=== PATIENT | male | born 1935 | race Asian ===

== ENCOUNTER 2019-09-09 08:47 | Inpatient (IN) | payer MEDICARE, OTHER ==
[~2019-09-09] VITALS: Ht 172.7 cm; Wt 88.5 kg
[2019-09-09] VITALS (7 sets, daily range): BP systolic 115–138; BP diastolic 55–78
[~2019-09-09 08:47] MED LIST: CLOPIDOGREL75 MG ORAL; DEXILANT60 MG ORAL; LOSARTAN POTASS50 MG ORAL; METOPROLOL TART25 MG ORAL
--- NOTE | 2019-09-09 08:50 | NUR ---
ED Nurse Note: Patient broiught in by ambulance from home RA [id number] due to left anterior upper abdominal pain non radiating 02/04, patient vomiting upon arrival, reports patient has been vomiting since last night, reports hx of "gall stone", and several surgeries to take out "stones." patient is alert awake x4 ambulatory, weak, breathing unlabored and even, patient placed on a hospital gown and on a cardiac montior. fever of 101.[address] Rojas.
--- NOTE | 2019-09-09 08:59 | Emergency Room Report ---
History of Present Illness General Chief Complaint: Abdominal Pain Source: Patient, EMS Present Illness HPI Disclaimer: Please note that this report is being documented using [employer] technology. This can lead to erroneous entry secondary to incorrect interpretation by the dictating instrument. HPI: 83-year-old male with a history of cholecystitis, CAD, hypertension, hyperlipidemia, BPH presents for evaluation of abdominal pain and vomiting. Symptoms began last night. Notes upper abdominal epigastric and left upper quadrant cramping. Noted bilious emesis without hematemesis. Unable to hold down any food now. States he has had multiple abdominal surgeries for "stones" but cannot say exactly which kind of stones, either kidney stones or gallstones. He states he has had gallstones before but states he keeps getting them. Denies dysuria or hematuria. Denies flank pain. Denies chest pain or shortness of breath. Does feel globally weak. No known sick contacts. No exacerbating or alleviating symptoms. PMH: Hypertension, hyperlipidemia, CAD, BPH, cholelithiasis PSH: Multiple abdominal surgeries, unspecified Allergies: Denies Social Hx: Denies Allergies: Coded Allergies: No Known Allergies (Unverified , 07/17/16) Nursing Documentation-PMH Hx Cardiac Problems: No Hx Hypertension: Yes Hx Cancer: No Hx Neurological Problems: No Review of Systems All Other Systems: negative except mentioned in HPI Physical Exam Vital Signs Date Time Temp Pulse Resp B/P (MAP) Pulse Ox O2 Delivery O2 Flow Rate FiO2 09/09/19 08:43 97.5 89 16 160/70 (100) 91 Room Air General: Awake and alert, appears uncomfortable, febrile HEENT: NC/AT. EOMI. dry mucous membranes Cardiovascular: RRR. S1 and S2 normal. No murmur appreciated Resp: Normal work of breathing. No cough, wheezing or crackles appreciated Abdomen: Abdomen is soft, nondistended. Tenderness in the epigastrium and left upper quadrant. Negative Grossman sign. No masses. No rebound. Skin: Intact. No abrasions, laceration or rash over the exposed skin MSK: Normal tone and bulk. Moving all extremities. No obvious deformity. Neuro: Awake and alert. Mentating appropriately. Medical Decision Making Diagnostic Impression: Primary Impression: Duodenitis Additional Impression: Intractable vomiting ER Course 83-year-old male presents for evaluation of abdominal pain and vomiting. Differential includes but is not limited to cholecystitis, cholecystitis, pancreatitis, gastritis, gastroenteritis, bowel obstruction, choledocholithiasis , cholangitis, urinary tract infection, pyelonephritis, nephrolithiasis. We will start broad metabolic and infectious work-up. The patient is febrile. Will start sepsis work-up as well. Will require CT scan of the abdomen. Laboratory Tests Test 09/09/19 09:00 White Blood Count 16.8 K/UL (4.8-10.8) H Red Blood Count 5.06 M/UL (4.70-6.10) Hemoglobin 16.0 G/DL (14.2-18.0) Hematocrit 44.7 % (42.0-52.0) Mean Corpuscular Volume 88 FL (80-99) Mean Corpuscular Hemoglobin 31.7 PG (27.0-31.0) H Mean Corpuscular Hemoglobin Concent 35.9 G/DL (32.0-36.0) Red Cell Distribution Width 11.0 % (11.6-14.8) L Platelet Count 160 K/UL (150-450) Mean Platelet Volume 5.6 FL (6.5-10.1) L Neutrophils (%) (Auto) % (45.0-75.0) Lymphocytes (%) (Auto) % (20.0-45.0) Monocytes (%) (Auto) % (1.0-10.0) Eosinophils (%) (Auto) % (0.0-3.0) Basophils (%) (Auto) % (0.0-2.0) Differential Total Cells Counted 100 Neutrophils % (Manual) 92 % (45-75) H Lymphocytes % (Manual) 5 % (20-45) L Monocytes % (Manual) 3 % (1-10) Eosinophils % (Manual) 0 % (0-3) Basophils % (Manual) 0 % (0-2) Band Neutrophils 0 % (0-8) Platelet Estimate Adequate Platelet Morphology Normal Red Blood Cell Morphology Normal Sodium Level 135 MMOL/L (136-145) L Potassium Level 3.5 MMOL/L (3.5-5.1) Chloride Level 100 MMOL/L (98-107) Carbon Dioxide Level 27 MMOL/L (21-32) Anion Gap 8 mmol/L (5-15) Blood Urea Nitrogen 16 mg/dL (7-18) Creatinine 1.1 MG/DL (0.55-1.30) Estimate Glomerular Filtration Rate mL/min (>60) Glucose Level 156 MG/DL (74-106) H Lactic Acid Level 2.00 mmol/L (0.4-2.0) Calcium Level 8.4 MG/DL (8.5-10.1) L Total Bilirubin 2.2 MG/DL (0.2-1.0) H Direct Bilirubin 1.0 MG/DL (0.0-0.3) H Aspartate Amino Transferase (AST) 69 U/L (15-37) H Alanine Aminotransferase (ALT) 137 U/L (12-78) H Alkaline Phosphatase 115 U/L (46-116) Troponin I 0.028 ng/mL (0.000-0.056) Total Protein 6.9 G/DL (6.4-8.2) Albumin 3.7 G/DL (3.4-5.0) Globulin 3.2 g/dL Albumin/Globulin Ratio 1.2 (1.0-2.7) Lipase 47 U/L (73-393) L EKG Diagnostic Results EKG Time: 09:11 Rate: normal Rhythm: NSR ST Segments: no acute changes Other Impression Sinus rhythm first-degree AV block. Normal axis, normal intervals, no ischemic changes Rhythm Strip Diag. Results Rhythm Strip Time: 09:11 EP Interpretation: yes Rate: 80s Rhythm: NSR, no PVC's, no ectopy Reevaluation Time: 12:19 Last Vital Signs Date Time Temp Pulse Resp B/P (MAP) Pulse Ox O2 Delivery O2 Flow Rate FiO2 09/09/19 08:43 97.5 89 16 160/70 (100) 91 Room Air Reevaluation Impression Labs show an elevated white count at 16.8 with a shift of 92%. There is mild elevation in bilirubin and his LFTs and CT scan is consistent with duodenitis. The CBD is dilated though this may be secondary to postsurgical changes from his cholecystectomy. No evidence of pancreatitis. Lactate is within normal limits. He continues to receive IV fluid antiemetics though still symptomatic with multiple episodes of emesis. He will be admitted to the hospital for further management and evaluation. Disposition: ADMITTED INPATIENT Condition: Serious Scripts Unable to Obtain Active Prescriptions or Reported Meds Denis Rojas MD Sep 09, 2019 08:59
[2019-09-09] MEDS ORDERED: Morphine Sulfate 4mg/ml Inj (IV USE ONLY) IVP ONE (09:00)
[2019-09-09] MEDS ORDERED: Omnipaque-300 100ml vial INJ PRN (09:00)
--- NOTE | 2019-09-09 09:21 | NUR ---
ED Nurse Note: cxr at bedside.
[2019-09-09 09:31] LABS: ANION GAP 8 mmol/L (5-15); BLOOD UREA NITROGEN 16 mg/dL (7-18); CALCIUM 8.4 MG/DL (8.5-10.1); CARBON DIOXIDE 27 MMOL/L (21-32); CHLORIDE 100 MMOL/L (98-107); CREATININE 1.1 MG/DL (0.55-1.30); POTASSIUM 3.5 MMOL/L (3.5-5.1); SODIUM 135 MMOL/L (136-145)
[2019-09-09 09:41] LABS: ALANINE AMINOTRANSFERASE 137 U/L (12-78); ALBUMIN 3.7 G/DL (3.4-5.0); ALBUMIN/GLOBULIN RATIO 1.2 (1.0-2.7); ALKALINE PHOSPHATASE 115 U/L (46-116); ASPARTATE AMINO TRANSFERASE 69 U/L (15-37); BILIRUBIN,TOTAL 2.2 MG/DL (0.2-1.0)
--- NOTE | 2019-09-09 09:49 | NUR ---
ED Nurse Note: patient taken to CT scan. consented to contrast injection.
--- NOTE | 2019-09-09 09:59 | Diagnostic Imaging Report ---
Indication: Dyspnea Comparison: None A single view chest radiograph was obtained. Findings: Cardiomediastinal appearance is within normal limits for age. The lungs are clear with low lung volumes. Pulmonary vascularity is appropriate. The diaphragmatic contour is smooth and costophrenic angles are sharp. No pleural effusions are identified. The bones are unremarkable. Impression: No acute findings
[2019-09-09 10:01] LABS: HEMATOCRIT 44.7 % (42.0-52.0); MEAN CORPUSCULAR VOLUME 88 FL (80-99); PLATELET COUNT 160 K/UL (150-450); RED BLOOD COUNT 5.06 M/UL (4.70-6.10); WHITE BLOOD COUNT 16.8 K/UL (4.8-10.8)
--- NOTE | 2019-09-09 10:10 | NUR ---
ED Nurse Note: patient came back from CT scan at bedside.
--- NOTE | 2019-09-09 11:06 | Diagnostic Imaging Report ---
Indication: Abdominal pain Technique: Continuous helical transaxial imaging of the abdomen and pelvis was obtained from the lung bases to the pubic symphysis during intravenous contrast administration. Coronal 2-D reformats were also obtained. Study obtained in a Siemens sensation [address] Automatic Exposure Control was utilized. Total Dose length Product (DLP): 1055.[address] Dose Index Volume (CTDIvol): 16 mGy Comparison: 07/17/2016 Findings: There is mild bronchiectasis at the lung bases with some mild reticular densities likely representing some degree of mild peripheral fibrosis. There is a small hiatal hernia. There is apparent thickening of the wall of the first portion duodenum, pyloric region. Query peptic ulcer disease and duodenitis. Cholecystectomy noted. CBD is mildly prominent. This could be normal given the prior cholecystectomy and the patient's advanced age. Please correlate clinically. There is no free air. In the peripheral right lobe of the liver there is a area of relative hypoechogenicity. There is a right renal cyst measuring 12 mm. There is no hydronephrosis demonstrated. Mild arterial calcifications are present within the aorta as well as branches of the aorta. The bladder is unremarkable. There is no evidence of bowel obstruction. There is no free fluid. IMPRESSION: Apparent thickening of the first portion of duodenum/pylorus. Consider peptic ulcer disease/duodenitis. No free air identified. Consider EGD for further evaluation. Mild prominence of the CBD which may be normal given prior cholecystectomy and advanced age. Correlate clinically. Some heterogeneity in the right lobe of the liver, nonspecific. Consider reevaluation with triphasic CT on nonemergent follow-up. Right renal cyst Atherosclerotic vascular disease Mild peripheral fibrosis at the lung bases. Small hiatal hernia The CT scanner at [facility] is accredited by the [employer] and the scans are performed using dose optimization techniques as appropriate to a performed exam including Automatic Exposure control.
--- NOTE | 2019-09-09 12:27 | NUR ---
ED Nurse Note: UA sent to lab
[2019-09-09 13:08] LABS: APPEARANCE,URINE CLEAR; BILIRUBIN, URINE NEGATIVE (NEGATIVE); GLUCOSE, URINE (UA) NEGATIVE (NEGATIVE); KETONES,URINE 2+ (NEGATIVE); LEUKOCYTE ESTERASE ,URINE NEGATIVE (NEGATIVE); NITRITE,URINE NEGATIVE (NEGATIVE); PH,URINE 7 (4.5-8.0); PROTEIN,URINE 1+ (NEGATIVE); UROBILINOGEN,URINE NORMAL MG/DL (0.0-1.0)
[2019-09-09 13:09] LABS: COLOR,URINE YELLOW
--- NOTE | 2019-09-09 13:40 | NUR ---
ED Nurse Note: report given to Juani RILEY. Endorsed all plan of care to Juani RILEY.
--- NOTE | 2019-09-09 14:25 | NUR ---
ED Nurse Note: patient transferred to with [facility] [employer] TECHN[employer]IST [facility] with all of his belongings, without complication.
--- NOTE | 2019-09-09 14:30 | NUR ---
nurse notes received patient from ED via gursurekha , patient awake, laert, oriented x4, indonesian speaking only, at bedside, oriented to the unit, admission routine care rendered, HL patent right FA, v/s taken and recordeded, on fall precaution will call PMD for further order siddhartha baldwin
[2019-09-09] MEDS: NS w/KCl 20mEq 1000ml 1,000 ML IV SCH (17:26)
[2019-09-09] MEDS: Piperacillin/Tazobactam 3.375 GM in NS 110 ML IVPB SCH (17:47)
--- NOTE | 2019-09-09 19:22 | NUR ---
HAND-OFF: Report given to OSVALDO Brasher PATIENT RESTING COMFORTABLY, NO SIGN OF DISTRESS OSVALDO JORDAN
--- NOTE | 2019-09-09 19:32 | General Progress Note ---
Assessment/Plan Assessment/Plan: GI Consult Dictated Recommendations - Clears - Abx - Follow labs - PPI - MRCP in am - further rec to follow Thank you Kodak Rodríguez MD Subjective Allergies: Coded Allergies: No Known Allergies (Unverified , 07/17/16) Objective Last 24 Hour Vital Signs Date Time Temp Pulse Resp B/P (MAP) Pulse Ox O2 Delivery O2 Flow Rate FiO2 09/09/19 16:40 98.2 90 19 118/78 (91) 92 09/09/19 15:04 Room Air 09/09/19 14:45 98.2 22 132/60 (84) 98 09/09/19 14:25 97.0 95 27 130/55 93 Room Air 09/09/19 14:00 97.0 97 25 128/56 93 Room Air 09/09/19 11:57 97.0 95 27 130/55 93 Room Air 09/09/19 10:27 97.0 88 27 138/60 95 Room Air 09/09/19 10:26 97.0 09/09/19 09:36 101.0 09/09/19 09:13 94 31 Room Air 09/09/19 08:58 101.0 94 31 130/57 95 Room Air 09/09/19 08:43 97.5 89 16 160/70 (100) 91 Room Air Laboratory Tests 09/09/19 09:00: White Blood Count 16.8H, Red Blood Count 5.06, Hemoglobin 16.0, Hematocrit 44.7 , Mean Corpuscular Volume 88, Mean Corpuscular Hemoglobin 31.7H, Mean Corpuscular Hemoglobin Concent 35.9, Red Cell Distribution Width 11.0L, Platelet Count 160, Mean Platelet Volume 5.6L, Neutrophils (%) (Auto) , Lymphocytes (%) (Auto) , Monocytes (%) (Auto) , Eosinophils (%) (Auto) , Basophils (%) (Auto) , Differential Total Cells Counted 100, Neutrophils % ( Manual) 92H, Lymphocytes % (Manual) 5L, Monocytes % (Manual) 3, Eosinophils % ( Manual) 0, Basophils % (Manual) 0, Band Neutrophils 0, Platelet Estimate Adequate, Platelet Morphology Normal, Red Blood Cell Morphology Normal, Sodium Level 135L, Potassium Level 3.5, Chloride Level 100, Carbon Dioxide Level 27, Anion Gap 8, Blood Urea Nitrogen 16, Creatinine 1.1, Estimat Glomerular Filtration Rate , Glucose Level 156H, Lactic Acid Level 2.00, Calcium Level 8.4L , Total Bilirubin 2.2H, Direct Bilirubin 1.0H, Aspartate Amino Transf (AST/SGOT ) 69H, Alanine Aminotransferase (ALT/SGPT) 137H, Alkaline Phosphatase 115, Troponin I 0.028, Total Protein 6.9, Albumin 3.7, Globulin 3.2, Albumin/ Globulin Ratio 1.2, Lipase 47L 09/09/19 12:21: Urine Color Yellow, Urine Appearance Clear, Urine pH 7, Urine Specific Hydes 1.010, Urine Protein 1+H, Urine Glucose (UA) Negative, Urine Ketones 2+H, Urine Blood 1+H, Urine Nitrite Negative, Urine Bilirubin Negative, Urine Urobilinogen Normal, Urine Leukocyte Esterase Negative, Urine RBC 2-4H, Urine WBC 0-2, Urine Squamous Epithelial Cells Occasional, Urine Bacteria Occasional Height (Feet): 5 Height (Inches): 8.00 Weight (Pounds): 195 Kodak Rodríguez MD Sep 09, 2019 19:32
--- NOTE | 2019-09-09 20:39 | NUR ---
NURSE NOTES: Received patient comfortably sleeping with essentially normal vital signs.
[2019-09-10] MEDS ORDERED: Morphine Sulfate 2mg/ml Inj(IV/IM USE ONLY) IVP PRN (00:15)
--- NOTE | 2019-09-10 01:46 | Consultation ---
DATE OF CONSULTATION: 09/09/2019 CHIEF COMPLAINT: I was asked to see this patient by Dr. Benjamín Bliss for evaluation of abdominal pain, leukocytosis, and abnormal liver tests. HISTORY OF PRESENT ILLNESS: The patient is an 83-year-old man who comes into the hospital due to 1-day history of abdominal pain as well as emesis. He was admitted here about three years ago at which time he had gallstone disease and cholelithiasis. He underwent ERCP with sphincterotomy and gallstone extraction. He was improving; therefore, he was discharged home without cholecystectomy. However, he apparently has undergone cholecystectomy since then sometime over the past few years and CT scan now showed a cholecystectomy. The patient also has some abnormalities in the duodenum and had a CT scan which was ill-defined. He is now on clear liquid diet in the hospital. He does have leukocytosis on admission. PAST MEDICAL HISTORY: History of hypertension, hyperlipidemia, coronary artery disease, benign prostatic hypertrophy, history of cholelithiasis status post cholecystectomy. ALLERGIES: None. FAMILY HISTORY: Noncontributory. SOCIAL HISTORY: The patient is Pashto speaking. He has three children. He is . He does not drink alcohol. REVIEW OF SYSTEMS: Otherwise negative. PHYSICAL EXAMINATION: GENERALT: The patient is an elderly Pashto man, seen in his room. HEENT: Normocephalic and atraumatic. Oropharynx clear. NECK: Supple. CHEST: Clear to auscultation. CARDIOVASCULAR: Regular rate. ABDOMEN: Soft with some right upper quadrant abdominal pain. There was also some mild tenderness in that area. EXTREMITIES: Revealed no edema. LABORATORY DATA: Noted. ASSESSMENT: This patient presents with right upper quadrant pain, nausea and vomiting. This is in conjunction with abnormal liver tests. He does have a history of cholelithiasis, and his gallbladder has been removed. The possibility of choledocholithiasis however exists, and therefore the patient should undergo an MRCP examination tomorrow to see if there is any common bile duct stones. If so, then ERCP examination can be done to remove the stones. If the bile ducts are negative on MRCP, then he will require an endoscopy to evaluate the unusual changes in the duodenal bulb. For the time being, the patient's clear liquid diet can be continued and antibiotics would be reasonable given his leukocytosis. RECOMMENDATIONS: Per above discussion and per orders written in the chart. Thank you for asking me to participate in the care of this patient. Kodak Rodríguez M.D. DR: Eduardo JOB#: [id number] CC: JAYANT
[2019-09-10 04:00] VITALS: BP 120/68
[2019-09-10] MEDS: Piperacillin/Tazobactam 3.375 GM in NS 110 ML IVPB SCH (05:04)
[2019-09-10] MEDS: NS w/KCl 20mEq 1000ml 1,000 ML IV SCH (05:04)
--- NOTE | 2019-09-10 05:45 | History and Physical Report ---
DATE OF ADMISSION: 09/09/2019 REASON FOR ADMISSION: Abdominal pain, nausea, and vomiting in the setting of known hepatobiliary disease. HISTORY OF PRESENT ILLNESS: This is a [place]ian gentleman age 83, who presented to the emergency room complaining of abdominal pain, nausea, and vomiting of one day's duration. The symptoms are mostly in the midepigastric and left upper quadrant region and they are described as cramping. He has had bilious emesis without blood. He has not had any diarrhea and has not been able to tolerate any oral intake. The patient has a history of gallstones and was actually hospitalized here in 2016 for cholangitis due to choledocholithiasis and at that time, he underwent ERCP with sphincterotomy and stone extraction. He states he has had other episodes in the past. PAST MEDICAL HISTORY: Includes hypertension, hyperlipidemia, coronary artery disease, and prostatic hypertrophy. PAST SURGICAL HISTORY: He has had prior abdominal surgeries, although it is not clear for what. There is a history of cholelithiasis. ALLERGIES: None. MEDICATIONS: Prior to admission, reviewed and reconciled. FAMILY HISTORY: Noncontributory. REVIEW OF SYSTEMS: A 10-point review of systems was performed. No fevers or chills. No loss of vision or hearing. No history of asthma or abnormal blood clotting. No recent change in exercise capacity. He is on anti-platelet therapy. He does not know his cholesterol level. There is no history of diabetes or thyroid disorder. There is no history of seizure or stroke. Denies any history of prostate cancer or kidney disease. He is not sure if he had any colonoscopy in the past. PHYSICAL EXAMINATION: VITAL SIGNS: Blood pressure 160/70, pulse 89, respiratory rate 16, and afebrile. GENERAL: Ill-appearing moderate distress due to abdominal discomfort. HEENT: Conjunctivae are pink. Oropharynx is clear. Mucous membranes are dry. NECK: Supple. Jugular venous pressure normal. LUNGS: Clear. CARDIAC: Regular rhythm and rate. Normal S1 and S2 with a fourth heart sound. ABDOMEN: Slightly distended, but soft. Tender in the midepigastric and bilateral upper quadrants. No guarding or rebound. NEUROLOGIC: Nonfocal. LABORATORY DATA: CT scan revealed duodenitis. Labs - white count 16.8 and hemoglobin 16. Sodium 135, potassium 3.5, bicarb 27, BUN 16, creatinine 1.1, and glucose 156. Lactic acid 2. IMPRESSION: 1. Duodenitis. 2. Sepsis. 3. cholangitis due to choledocholithiasis. 4. Hyperglycemia. 5. History of coronary artery disease with stable angina. 6. Hypertensive heart disease with slight elevation in blood pressure likely due to pain. PLAN: 1. Clear liquids. 2. Antiemetics. 3. Empiric IV antimicrobials. 4. GI consultation for probable hepatobiliary assessment. 5. DVT prophylaxis. 6. Pain control. 7. Empiric proton pump inhibitor. Benjamín Bliss M.D. DR: IHSAN JOB#: [id number] CC:
[2019-09-10 07:22] LABS: HEMOGLOBIN 14.6 G/DL (14.2-18.0); MEAN CORPUSCULAR VOLUME 89 FL (80-99); PLATELET COUNT 135 K/UL (150-450); RED BLOOD COUNT 4.63 M/UL (4.70-6.10); RED CELL DISTRIBUTION WIDTH 11.1 % (11.6-14.8); WHITE BLOOD COUNT 17.2 K/UL (4.8-10.8)
--- NOTE | 2019-09-10 07:23 | NUR ---
HAND-OFF: Written Report given to Sheela Samuels RN. Addendum: 09/10/19 at 0742 by LOU GRIFFITH RN HAND-OFF: Report given to Sheela Samuels RN.
[2019-09-10 07:43] LABS: INR 1.2 (0.9-1.1)
[2019-09-10 08:00] VITALS: BP 115/65
--- NOTE | 2019-09-10 08:04 | NUR ---
NURSE NOTES: Patient received resting in bed, alert and orientedx4. Breathing unlabored on room air, denies pain or SOB at this time. Currently NPO for schedule adbominal procedure today. Urinal by the bedside. Bed locked in lowest position, call light placed within reach, will continue to monitor.
[2019-09-10 08:06] LABS: ALANINE AMINOTRANSFERASE 103 U/L (12-78); ALBUMIN 3.2 G/DL (3.4-5.0); ALKALINE PHOSPHATASE 99 U/L (46-116); ANION GAP 11 mmol/L (5-15); ASPARTATE AMINO TRANSFERASE 54 U/L (15-37); BILIRUBIN,TOTAL 1.7 MG/DL (0.2-1.0); BLOOD UREA NITROGEN 14 mg/dL (7-18); CALCIUM 8.1 MG/DL (8.5-10.1); CARBON DIOXIDE 23 MMOL/L (21-32); CHLORIDE 106 MMOL/L (98-107); POTASSIUM 3.4 MMOL/L (3.5-5.1); SODIUM 140 MMOL/L (136-145)
[2019-09-10 08:07] LABS: BILIRUBIN,DIRECT 0.6 MG/DL (0.0-0.3)
--- NOTE | 2019-09-10 09:30 | NUR ---
NURSE NOTES: pt wants ama due to pcp is in another hosp [facility], called and spoke w dr Leanne osorio for ama.
--- NOTE | 2019-09-10 15:24 | NUR ---
CASE MANAGEMENT:REVIEW 83 YR OLD MALE BIBA FROM HOME CC; abdominal pain and vomiting SI:INTRACTABLE VOMITING. DUODENITIS 101.0 89 16 160/70 91% ON RA WBC+16.8 IS:IV ZOFRAN X2 IV MORPHINE 1L NS BOLUS TYLENOL PO CHEST XRAY CT ABD/PELVIS : MED/SURG STATUS 4 EAST
--- NOTE | 2019-09-10 21:15 | Progress Note ---
DATE: 09/10/2019 INTERNAL MEDICINE AND CARDIOLOGY PROGRESS NOTE SUBJECTIVE: The patient continues to have abdominal pain and nausea. No vomiting today. He states that he has had similar episodes in the past as noted last evening. He has been followed more recently at [facility] and wants to transfer there. I have asked him to remain in-house because of the severity of his condition until we are able to contact his physicians there and arrange possible transfer. I have stressed that he needs to continue antimicrobials and remain NPO on IV fluids. OBJECTIVE: VITAL SIGNS: Blood pressure 115/65, heart rate 81, respirations 18, afebrile. LUNGS: Clear. CARDIAC: Regular. Normal S1, S2. ABDOMEN: Distended, tender with no guarding or rebound. EXTREMITIES: Without edema. LABORATORY DATA: Sodium 140, potassium 3.4, bicarb 23, BUN 14, creatinine 1. AST, ALT are slightly improved with alkaline phosphatase of 99. Albumin 3.2. White count still high at 17.2, hemoglobin 14.6. IMPRESSION: 1. Sepsis. 2. Leukocytosis. 3. Probable cholangitis due to choledocholithiasis. PLAN: 1. NPO. 2. IV fluids. 3. MRCP per GI heritage consultant. 4. IV antimicrobials. 5. Pain control. 6. Potassium replacement and IV fluids. Benjamín Bliss M.D. DR: USHA JOB#: [id number] CC:
--- NOTE | 2019-09-10 23:16 | General Progress Note ---
Assessment/Plan Assessment/Plan: Assessment Abnormal LFT N/V abd pain Recommendations - po as fermin - f/u with prior MD KALEB - Abx - Follow labs - PPI - MRCP as outpatient Subjective Allergies: Coded Allergies: No Known Allergies (Unverified , 07/17/16) Subjective patient seen this am Nepali speaking RN at bedside dressed to walk out AMA does not want to be here any more abd better Objective Last 24 Hour Vital Signs Date Time Temp Pulse Resp B/P (MAP) Pulse Ox O2 Delivery O2 Flow Rate FiO2 09/10/19 08:00 97.9 81 18 115/65 (82) 94 09/10/19 04:00 98.7 88 18 120/68 (85) 96 Intake and Output 09/09/19 09/10/19 19:00 07:00 Intake Total 127.5 ml 1137.5 ml Output Total 400 ml 400 ml Balance -272.5 ml 737.5 ml Intake Oral 100 ml IV Total 127.5 ml 1037.5 ml Output Urine Total 400 ml 400 ml # Voids 5 Laboratory Tests 09/10/19 05:59: White Blood Count 17.2H, Red Blood Count 4.63L, Hemoglobin 14.6, Hematocrit 41.0L, Mean Corpuscular Volume 89, Mean Corpuscular Hemoglobin 31.5H, Mean Corpuscular Hemoglobin Concent 35.6, Red Cell Distribution Width 11.1L, Platelet Count 135L, Mean Platelet Volume 6.8, Neutrophils (%) (Auto) , Lymphocytes (%) (Auto) , Monocytes (%) (Auto) , Eosinophils (%) (Auto) , Basophils (%) (Auto) , Differential Total Cells Counted 100, Neutrophils % ( Manual) 92H, Lymphocytes % (Manual) 5L, Monocytes % (Manual) 3, Eosinophils % ( Manual) 0, Basophils % (Manual) 0, Band Neutrophils 0, Platelet Estimate DecreasedL, Platelet Morphology Normal, Prothrombin Time 12.4H, Prothromb Time International Ratio 1.2H, Sodium Level 140, Potassium Level 3.4L, Chloride Level 106, Carbon Dioxide Level 23, Anion Gap 11, Blood Urea Nitrogen 14, Creatinine 1.0, Estimat Glomerular Filtration Rate , Glucose Level 117H, Calcium Level 8.1L, Total Bilirubin 1.7H, Direct Bilirubin 0.6H, Aspartate Amino Transf (AST/SGOT) 54H, Alanine Aminotransferase (ALT/SGPT) 103H, Alkaline Phosphatase 99, Total Protein 6.5, Albumin 3.2L, Globulin 3.3, Albumin/Globulin Ratio 1.0, Hepatitis A IgM Antibody [Pending], Hepatitis B Surface Antigen [ Pending], Hepatitis B Core IgM Antibody [Pending], Hepatitis C Antibody [Pending ] Height (Feet): 5 Height (Inches): 8.00 Weight (Pounds): 195 Objective Elderly tamazight man NCAT supple CTA RR abd soft no edema Kodak Rodríguez MD Sep 10, 2019 23:16
--- NOTE | 2019-09-11 13:58 | Discharge Summary ---
Discharge Summary Discharge Summary _ DATE OF ADMISSION: 09/09/2019 DATE OF DISCHARGE: 09/10/2019 Patient left AGAINST MEDICAL ADVICE REASON FOR ADMISSION: 83 years old male with past medical history of hypertension, hyperlipidemia, coronary artery disease, prostatic hypertrophy, presented to emergency department complaining of abdominal pain, nausea and vomiting for 1 day. Pain reported as mid epigastric as well as the left upper quadrant region and described as cramping. Patient reported bilious emesis without blood. No diarrhea. Patient was not able to tolerate oral intake. Patient had prior history of gallstones and had a history of hospitalization in 2016 for cholangitis due to choledocholithiasis. At that time he underwent ERCP with sphincterotomy and stone extraction. Patient reported that he had another episode in the past. Upon evaluation vital signs revealed elevated blood pressure 160/70, pulse oximetry was 91% on room air , no fever. Laboratory work-up revealed leukocytosis WBC 16.8, hemoglobin 16, hematocrit 44.7, platelet count 160. Sodium 135, potassium 3.5. BUN 16, creatinine 1.1. Lactic acid 2.0. Glucose 156. Total bilirubin 2.2, direct bilirubin 1.0. AST 69 , ALT 137. Lipase 47. Troponin 0.028. Albumin 3.7. EKG revealed sinus rhythm, no acute ischemic changes. Chest x-ray revealed no acute cardiopulmonary pathology. CT scan of the abdomen and pelvis demonstrated apparent thickening of the first portion of duodenum/pylorus. No free air. Consider EGD. Some heterogenicity in the right lobe of the liver, nonspecific . consider evaluation with intrathoracic CT on nonemergent follow-up. Mild prominence of the common bile duct, which may be normal given prior cholecystectomy and advanced age. In the emergency room patient received analgesic , antiemetic, started on IV fluids and admitted for further management. CONSULTANTS: GI specialist Dr. Rodríguez [facility] COURSE: Patient admitted to medical surgical floor. Patient started on clear liquid diet. Patient was continue on IV fluids. GI consult was requested. Patient started on empiric antibiotics. Symptomatic treatment with antiemetic provided. Pain management was addressed as needed. DVT prophylaxis provided. Patient started on GI prophylaxis with PPI. Blood culture negative. LFT trended down: AST from 69 down to 54 , ALT from 137 down to 103. Total bilirubin from 2.2 down to 1.7. GI specialist recommended MRCP . Potassium was replaced Patient decided to leave AGAINST MEDICAL ADVICE , since his primary care provider at [facility]. The risks and consequences of signing AGAINST MEDICAL ADVICE were discussed with patient in detail. Patient verbalized understanding, nevertheless signed AMA form and left. FINAL DIAGNOSES: Sepsis Leukocytosis Probable cholangitis due to choledocholithiasis Abnormal LFT Nausea , vomiting with abdominal pain Hyperglycemia History of coronary artery disease with stable angina Hypertensive heart disease with slight elevation of blood pressure, likely due to pain I have been assigned to dictate discharge summary for this account. I was not involved in the patient's management. Delma Nassar NP Sep 11, 2019 13:58
== END 2019-09-10 09:30 | disposition left against medical advice (07) | DRG 872 ==
LOC: EDBD 08:47 → EMR 09:05 → 4E 12:34 → EDBEDREQ 13:31
DX: A41.9 Sepsis, unspecified organism (principal); K80.30 Calculus of bile duct with cholangitis, unspecified, without obstruction; K29.80 Duodenitis without bleeding; R11.10 Vomiting, unspecified; R73.9 Hyperglycemia, unspecified; R94.5 Abnormal results of liver function studies; R11.2 Nausea with vomiting, unspecified; R10.9 Unspecified abdominal pain; I25.118 Atherosclerotic heart disease of native coronary artery with other forms of angina pectoris; I11.9 Hypertensive heart disease without heart failure
CPT/HCPCS: 36415; 71045; 74177; 80053; 81003; 82248; 83605; 83690; 84484; 85007; 85025; 85610; 86705; 86709; 86803; 87040; 87340; 93005; 96361; 96374; 96375; 96376; 99285; J2405; J7030